=== PATIENT | male | born 1945 | race Caucasian/White ===

== ENCOUNTER 2024-02-12 10:49 | Emergency (ER) | payer OTHER ==
[2024-02-12] MEDS ORDERED: LIDOCAINE VISCOUS 2% 10ML ORAL SOLN ONE (11:11)
[2024-02-12] MEDS ORDERED: TAMSULOSIN 0.4 MG SR CAP ONE (11:14)
[2024-02-12] MEDS ORDERED: GABAPENTIN 300 MG CAP ONE (11:15)
[2024-02-12] MEDS ORDERED: CIPROFLOXACIN HCL 500 MG TAB ONE (11:16)
[2024-02-12] MEDS ORDERED: CIPROFLOXACIN HCL 250 MG TAB PO ONE (11:30)
[2024-02-12] MEDS ORDERED: VALACYCLOVIR 500 MG TAB PO ONE (11:30)
--- NOTE | 2024-02-12 11:31 | ER ---
Nurse's Notes [facility] – [place], [place] Name: Tay Gallegos Age: 78 yrs Sex: Male : 1945 Arrival Date: 02/12/2024 Time: 10:49 Bed 4 Private MD: Diagnosis: Other retention of urine;Retention of urine, unspecified;Zoster without complications Presentation: 02/11 11:08 Chief complaint: Patient states: R trunk pain with rash for 3 days. Dysuria and trouble ll1 urinating for a few days. No known fever. Coronavirus screen: Client denies travel out of the [place] in the last 14 days. At this time, the client does not indicate any symptoms associated with coronavirus-19. Ebola Screen: Patient denies travel to an Ebola-affected area in the 21 days before illness onset. Initial Sepsis Screen: Does the patient meet any 2 criteria? No. Patient's initial sepsis screen is negative. Does the patient have a suspected source of infection? No. Patient's initial sepsis screen is negative. Risk Assessment: Do you want to hurt yourself or someone else? Patient reports no desire to harm self or others. Onset of symptoms was February 10, 2024. 11:08 Method Of Arrival: Ambulatory ll1 11:08 Acuity: ESTELA 3 ll1 Triage Assessment: 10:56 General: Appears uncomfortable, Behavior is calm, cooperative, appropriate for age. ll1 Pain: Complains of pain in R trunk Pain currently is 8 out of 10 on a pain scale. Quality of pain is described as aching. : Reports burning with urination, pain with urination, urgency, urinary frequency. Derm: Reports rash and pain to R trunk. Historical: - Allergies: 10:55 No Known Allergies; ll1 - PMHx: 10:55 Hypertensive disorder; Hypercholesterolemia; ll1 - PSHx: 10:55 None; ll1 - Immunization history:: Adult Immunizations up to date. - Social history:: Smoking status: Patient denies any tobacco usage or history of. Screenin:20 Abuse screen: Denies threats or abuse. Denies injuries from another. Nutritional ss screening: No deficits noted. Tuberculosis screening: Never had TB. Assessment: 11:20 General: Appears in no apparent distress. comfortable, Behavior is calm, cooperative. ss Pain: Complains of pain in suprapubic area Pain currently is 7 out of 10 on a pain scale. Quality of pain is described as pressure, Is continuous. Neuro: Level of Consciousness is awake, alert, obeys commands, Oriented to person, place, time, situation. Respiratory: Airway is patent Respiratory effort is even, unlabored, Respiratory pattern is regular, symmetrical. GI: Abdomen is non-distended. : Reports unable to void since yesterday. Pt reports he has noticed he has been trouble voiding for the past few days. EENT: Oral mucosa is moist. Derm: Skin is intact, is healthy with good turgor, Skin is pink, warm \T\ dry. normal. Derm: shingles rash noted to R lateral chest wall. 12:04 Reassessment: converted to leg bag. Vital Signs: 11:08 BP 145 / 102; Pulse 107; Resp 17; Pulse Ox 95% on R/A; Weight 81.19 kg; Height 5 ft. 9 ll1 in. ; Pain 8/10; 12:04 Temp 98.7; ss 11:08 Body Mass Index 26.43 (81.19 kg, 175.26 cm) ll1 11:08 Pain Scale: Adult ll1 ED Course: 10:54 Patient arrived in ED. mr 10:54 Win Dotson MD is Attending Physician. thelma 10:55 Arm band placed on Patient placed in an exam room, on a stretcher. ll1 11:09 Triage completed. ll1 11:12 Katy Serrano, EVANGELINA is Primary Nurse. ss 11:20 Patient has correct armband on for positive identification. Bed in low position. ss 11:30 Greg Wall MD is Referral Physician. thelma 11:30 Mati Danielle MD is Referral Physician. [facility] 11:40 Moya cath inserted, using sterile technique, 16 Fr., by md, balloon inflated, to ss gravity drainage, urine specimen collected. Patient tolerated well. 11:51 No provider procedures requiring assistance completed. Patient did not have IV access ss during this emergency room visit. Administered Medications: 11:40 Drug: Viscous Lidocaine Mucous Membrane Liquid (4 %) 10 ml Mucous Membrane once {Note: ss used for moya insertion as ordered by Dr. Dotson.} Route: Mucous Membrane; 11:50 Drug: Flomax PO 0.4 mg PO once Route: PO; ss 12:02 Follow up: Response: No adverse reaction ss 11:50 Drug: Valtrex PO 1000 mg PO once Route: PO; ss 12:02 Follow up: Response: No adverse reaction ss 11:50 Drug: Gabapentin PO 300 mg PO once Route: PO; ss 12:02 Follow up: Response: No adverse reaction ss 11:50 Drug: Ciprofloxacin PO 250 mg PO once Route: PO; ss 12:02 Follow up: Response: No adverse reaction ss Medication: 11:20 VIS not applicable for this client. ss Outcome: 11:31 Discharge ordered by . thelma 12:09 Discharged to home ambulatory, 12:09 Condition: good 12:09 Discharge instructions given to patient, family, Instructed on discharge instructions, follow up and referral plans. medication usage, Demonstrated understanding of instructions, follow-up care, medications, Prescriptions given X 4, 12:09 Patient left the ED. ss Signatures: Win Dotson MD MD cha Rivera, Mary, [facility] mr Katy Serrano RN RN Olivia Meehan RN RN ll1
--- NOTE | 2024-02-12 11:31 | EDPHYS ---
Physician Documentation [facility] Name: Tay Gallegos Age: 78 yrs Sex: Male : 1945 Arrival Date: 02/12/2024 Time: 10:49 Bed 4 Private MD: ED Physician Win Dotson HPI: 02/11 11:18 This 78 yrs old Male presents to ER via Ambulatory with complaints of Urinary thelma Problem, Shingles. Historical: - Allergies: 10:55 No Known Allergies; ll1 - PMHx: 10:55 Hypertensive disorder; Hypercholesterolemia; ll1 - PSHx: 10:55 None; ll1 - Immunization history:: Adult Immunizations up to date. - Social history:: Smoking status: Patient denies any tobacco usage or history of. ROS: 11:26 Constitutional: Negative for fever, chills, and weight loss, Eyes: Negative for injury, thelma pain, redness, and discharge, ENT: Negative for injury, pain, and discharge, Neck: Negative for injury, pain, and swelling, Cardiovascular: Negative for chest pain, palpitations, and edema, Respiratory: Negative for shortness of breath, cough, wheezing, and pleuritic chest pain, Back: Negative for injury and pain, MS/Extremity: Negative for injury and deformity, Neuro: Negative for headache, weakness, numbness, tingling, and seizure, Psych: Negative for depression, anxiety, suicide ideation, homicidal ideation, and hallucinations, Allergy/Immunology: Negative for hives, rash, and allergies, Endocrine: Negative for neck swelling, polydipsia, polyuria, polyphagia, and marked weight changes, Hematologic/Lymphatic: Negative for swollen nodes, abnormal bleeding, and unusual bruising, 11:26 Abdomen/GI: Positive for abdominal pain, of the suprapubic area, 11:26 Skin: Positive for rash, of the right mid back, Exam: 11:26 Constitutional: This is a well developed, well nourished patient who is awake, alert, thelma and in no acute distress. Head/Face: Normocephalic, atraumatic. Eyes: Pupils equal round and reactive to light, extra-ocular motions intact. Lids and lashes normal. Conjunctiva and sclera are non-icteric and not injected. Cornea within normal limits. Periorbital areas with no swelling, redness, or edema. ENT: Nares patent. No nasal discharge, no septal abnormalities noted. Tympanic membranes are normal and external auditory canals are clear. Oropharynx with no redness, swelling, or masses, exudates, or evidence of obstruction, uvula midline. Mucous membranes moist. Neck: Trachea midline, no thyromegaly or masses palpated, and no cervical lymphadenopathy. Supple, full range of motion without nuchal rigidity, or vertebral point tenderness. No Meningismus. Chest/axilla: Normal chest wall appearance and motion. Nontender with no deformity. No lesions are appreciated. Cardiovascular: Regular rate and rhythm with a normal S1 and S2. No gallops, murmurs, or rubs. Normal PMI, no JVD. No pulse deficits. Respiratory: Lungs have equal breath sounds bilaterally, clear to auscultation and percussion. No rales, rhonchi or wheezes noted. No increased work of breathing, no retractions or nasal flaring. Back: No spinal tenderness. No costovertebral tenderness. Full range of motion. Male : Normal genitalia with no discharge or lesions. MS/ Extremity: Pulses equal, no cyanosis. Neurovascular intact. Full, normal range of motion. Neuro: Awake and alert, GCS 15, oriented to person, place, time, and situation. Cranial nerves II-XII grossly intact. Motor strength 5/5 in all extremities. Sensory grossly intact. Cerebellar exam normal. Normal gait. Psych: Awake, alert, with orientation to person, place and time. Behavior, mood, and affect are within normal limits. 11:26 Abdomen/GI: Inspection: distension, that is mild, Bowel sounds: normal, Palpation: mild abdominal tenderness, in the suprapubic area, Liver: no appreciated palpable abnormalities, Hernia: not appreciated, 11:26 Skin: zoster, on the back and right mid back, Vital Signs: 11:08 BP 145 / 102; Pulse 107; Resp 17; Pulse Ox 95% on R/A; Weight 81.19 kg; Height 5 ft. 9 ll1 in. ; Pain 8/10; 12:04 Temp 98.7; ss 11:08 Body Mass Index 26.43 (81.19 kg, 175.26 cm) ll1 11:08 Pain Scale: Adult ll1 MDM: 10:54 Medical Screening Exam initiated thelma 11:28 Differential diagnosis: impetigo, varicella, nonspecific abdominal pain, UTI, urinary thelma retention, prostatitis, urethritis. Differential Diagnosis flu. Data reviewed: vital signs, nurses notes, lab test result(s), urinalysis. Consideration of Admission/Observation Escalation of care including admission/observation considered. I considered the following discharge prescriptions or medication management in the emergency department Medications were administered in the Emergency Department. See MAR. Test considered but Not performed: Labs: no cbc, no comp met. Care significantly affected by the following chronic conditions: Hypertension, Obesity, high chlesterol. 02/11 11:11 Order name: Urinalysis w/ reflexes [facility] 02/11 11:11 Order name: Urine Culture [facility] 02/11 11:11 Order name: Moya; Complete Time: 11:51 [facility] Administered Medications: 11:40 Drug: Viscous Lidocaine Mucous Membrane Liquid (4 %) 10 ml Mucous Membrane once {Note: ss used for moya insertion as ordered by Dr. Dotson.} Route: Mucous Membrane; 11:50 Drug: Flomax PO 0.4 mg PO once Route: PO; ss 12:02 Follow up: Response: No adverse reaction ss 11:50 Drug: Valtrex PO 1000 mg PO once Route: PO; ss 12:02 Follow up: Response: No adverse reaction ss 11:50 Drug: Gabapentin PO 300 mg PO once Route: PO; ss 12:02 Follow up: Response: No adverse reaction ss 11:50 Drug: Ciprofloxacin PO 250 mg PO once Route: PO; ss 12:02 Follow up: Response: No adverse reaction ss Disposition Summary: 02/12/24 11:31 Discharge Ordered Notes: Location: Home thelma Problem: new thelma Symptoms: have improved thelma Condition: Stable thelma Diagnosis - Other retention of urine thelma - Retention of urine, unspecified thelma - Zoster without complications thelma Followup: thelma - With: Private Physician - When: 2 - 3 days - Reason: Recheck today's complaints, Continuance of care, Re-evaluation by your physician Followup: thelma - With: Greg Wall MD - When: 2 - 3 days - Reason: Recheck today's complaints, Re-evaluation by your physician Followup: thelma - With: Mati Danielle MD - When: 2 - 3 days - Reason: Recheck today's complaints, Re-evaluation by your physician Discharge Instructions: - Discharge Summary Sheet thelma - Indwelling Urinary Catheter Care, Adult thelma - Shingles thelma - Acute Urinary Retention, Male thelma - Shingles, [id number] [facility] - Acute Urinary Retention, Male, [id number] [facility] - Indwelling Urinary Catheter Care, Adult, [id number] [facility] Forms: - Medication Reconciliation Form [facility] - Antibiotic Education [facility] - Prescription Opioid Use [facility] - Patient Portal Instructions [facility] - Leadership Thank You Letter [facility] Prescriptions: - Flomax 0.4 mg Oral capsule - take 1 capsule ORAL route daily; 30 capsule; Refills: 0, Product Selection [facility] Permitted - Valtrex 1 gram Oral tablet - take 1 tablet ORAL route every 8 hours for 7 days; 21 tablet; Refills: 0, [facility] Product Selection Permitted - gabapentin 300 mg Oral capsule - take 1 capsule ORAL route every 12 hours; 40 capsule; Refills: 0, Product [facility] Selection Permitted - Cipro 250 mg Oral tablet - take 1 tablet ORAL route every 12 hours; 14 tablet; Refills: 0, Product [facility] Selection Permitted Signatures: Dispatcher [employer] Win Purcell MD MD cha Blanchard, Shelby RN RN ss Olivia Caldwell RN RN ll1
[2024-02-12 11:59] LABS: Specific Gravity 1.008 (1.005-1.030); Urine Clarity Clear (Clear); Urine Color Light-Yellow (Yellow)
[2024-02-12 12:00] LABS: Urine Bilirubin NEGATIVE (Negative); Urine Blood Negative (Negative); Urine Glucose Negative (Negative); Urine Ketones NEGATIVE (Negative); Urine Microscopic Reflex YN NO UMIC; Urine Nitrite Negative (Negative); Urine Protein Negative (Negative); Urine Urobilinogen Normal mg/dL (0.2-1.0); Urine pH 6.5 (5.0-7.0)
[2024-02-12 12:12] VITALS: BP 145/102; O2SAT 95
[2024-02-12 12:13] VITALS: TEMP 98.7
== END 2024-02-12 12:09 | disposition home or self-care (01) ==
LOC: ER 10:49
DX: R33.8 Other retention of urine (principal); B02.9 Zoster without complications; I10 Essential (primary) hypertension
CPT/HCPCS: 51702; 81003; 87086; 87088; 99284

== ENCOUNTER 2024-03-10 20:44 | Emergency (ER) | payer OTHER ==
--- NOTE | 2024-03-11 01:37 | EDPHYS ---
Physician Documentation [facility] Name: Tay Gallegos Age: 78 yrs Sex: Male : 1945 Arrival Date: 03/10/2024 Time: 20:44 Bed IW1 Private MD: ED Physician HPI: 03/10 21:39 This 78 yrs old Male presents to ER via Unassigned with complaints of dr5 Constipation. 21:39 Pt is a 78 year old male with two days of constipation. NKDA. PMH: Hyperlipidemia, HTN, dr5 BPH. Pt currently has moya catheter in for BPH and has appointment on Monday. Patient tried a laxative this morning and 2 docusate tablets with no relief. Pt reports shingles is causing pain to his right upper flank.. Historical: - PMHx: 21:42 Hypercholesterolemia; Hypertensive disorder; tm6 - Immunization history:: Flu vaccine status is unknown. - Infectious Disease History:: has shingles. - Social history:: Smoking status: Patient denies any tobacco usage or history of. ROS: 21:39 Constitutional: as per hpi dr5 Exam: 21:39 Constitutional: This is a well developed, well nourished patient who is awake, alert, dr5 and in no acute distress. Head/Face: Normocephalic, atraumatic. Chest/axilla: Normal chest wall appearance and motion. Nontender with no deformity. No lesions are appreciated. Cardiovascular: Regular rate and rhythm with a normal S1 and S2. Normal PMI, no JVD. No pulse deficits. Respiratory: Lungs have equal breath sounds bilaterally, clear to auscultation. No rales, rhonchi or wheezes noted. No increased work of breathing, no retractions or nasal flaring. Abdomen/GI: Soft, non-tender, non-distended Skin: Warm, dry with normal turgor. Normal color with no rashes, no lesions, and no evidence of cellulitis. Neuro: Awake and alert, GCS 15, oriented to person, place, time, and situation. Cranial nerves II-XII grossly intact. Motor strength 5/5 in all extremities. Sensory grossly intact. Cerebellar exam normal. Normal gait. Vital Signs: 21:41 BP 143 / 57; Pulse 94; Resp 17; Pulse Ox 100% ; MAP 81 mmHg; tm6 21:43 Temp 98.2(O); Weight 77.11 kg; Height 5 ft. 9 in. ; tm6 21:43 Body Mass Index 25.10 (77.11 kg, 175.26 cm) tm6 MDM: 21:48 Medical Screening Exam initiated dr5 Administered Medications: No medications were administered Disposition Summary: 03/11/24 01:37 Eloped Notes: Disposition: after being seen by provider vc1 Reason: wait time vc1 Signatures: Concepción Chavez RN RN vc1 Solitario Hough RN RN tm6 Jacob Kearney, SALES AND MARKETING COORDINATOR-C SALES AND MARKETING COORDINATOR-Cdr5
--- NOTE | 2024-03-11 01:37 | ER ---
Nurse's Notes [facility] Name: Tay Gallegos Age: 78 yrs Sex: Male : 1945 Arrival Date: 03/10/2024 Time: 20:44 Bed IW1 Private MD: Diagnosis: Presentation: 03/10 21:41 Chief complaint: Patient states: constipated x2 days. Also has shingles. Coronavirus tm6 screen: Client denies travel out of the [place] in the last 14 days. Ebola Screen: Patient negative for fever greater than or equal to 101.5 degrees Fahrenheit, and additional compatible Ebola Virus Disease symptoms Patient denies exposure to infectious person. Patient denies travel to an Ebola-affected area in the 21 days before illness onset. No symptoms or risks identified at this time. Initial Sepsis Screen: Does the patient meet any 2 criteria? No. Patient's initial sepsis screen is negative. Does the patient have a suspected source of infection? No. Patient's initial sepsis screen is negative. Risk Assessment: Do you want to hurt yourself or someone else? Patient reports no desire to harm self or others. Onset of symptoms was March 08, 2024. 21:41 Method Of Arrival: Ambulatory tm6 21:41 Acuity: ESTELA 4 tm6 Triage Assessment: 21:42 General: Appears in no apparent distress. Behavior is calm, cooperative. Pain:. EENT: tm6 No signs and/or symptoms were reported regarding the EENT system. Neuro: Level of Consciousness is awake, alert, obeys commands, Oriented to person, place, time, situation. Cardiovascular: Patient's skin is warm and dry. Respiratory: Airway is patent Respiratory effort is even, unlabored, Respiratory pattern is regular, symmetrical. GI: Abdomen is flat, non-distended, Reports constipation. : No signs and/or symptoms were reported regarding the genitourinary system. Derm: No signs and/or symptoms reported regarding the dermatologic system. Musculoskeletal: No signs and/or symptoms reported regarding the musculoskeletal system. Historical: - PMHx: 21:42 Hypercholesterolemia; Hypertensive disorder; tm6 - Immunization history:: Flu vaccine status is unknown. - Infectious Disease History:: has shingles. - Social history:: Smoking status: Patient denies any tobacco usage or history of. Vital Signs: 21:41 BP 143 / 57; Pulse 94; Resp 17; Pulse Ox 100% ; MAP 81 mmHg; tm6 21:43 Temp 98.2(O); Weight 77.11 kg; Height 5 ft. 9 in. ; tm6 21:43 Body Mass Index 25.10 (77.11 kg, 175.26 cm) tm6 ED Course: 20:46 Patient arrived in ED. jj6 21:39 Jacob Kearney FNP-C is [facility]. dr5 21:39 Jerome Paz MD is Attending Physician. dr5 21:42 Triage completed. tm6 21:42 Arm band placed on left wrist. tm6 Administered Medications: No medications were administered Outcome: 03/11 01:37 Patient left the ED. vc1 04:01 Eloped from waiting room, after seeing physician Time discovered patient gone: March at 00:24 04:01 Condition: good Signatures: Darcy Abrams jj6 Concepción Chavez RN RN 1 Solitario Hough RN RN 6 Jacob Kearney FNP-C FAMILY MEDICINE CHAIR-Cdr5
[2024-03-11 07:42] VITALS: BP 143/57; O2SAT 100
[2024-03-11 07:43] VITALS: TEMP 98.2
== END 2024-03-11 01:37 | disposition left against medical advice (07) ==
LOC: ER 20:44
DX: K59.00 Constipation, unspecified (principal); I10 Essential (primary) hypertension
CPT/HCPCS: 99281